=== PATIENT | female | born 1950 | race Caucasian/White ===

== ENCOUNTER 2021-01-09 17:38 | Emergency (ER) | payer MEDICAID ==
[~2021-01-09] VITALS: Ht 160 cm; Wt 83.5 kg
[2021-01-09 17:54] VITALS: BP 159/67
--- NOTE | 2021-01-09 18:28 | NUR ---
70 Y/O F, PATIENT PRESENTS TO ED WITH BILATERAL LEG SWELLING AND PAIN AND PAINFUL URINATION FOR 1 WEEK. PT STATES SHE HAS BEEN HAVING BURNING SENSATION AND PAIN WITH URINATION, ODOR WITH URINE. DENIES N/V/D; SKIN IS PINK/WARM/DRY, BILATERAL LEG EDEMA, NO REDNESS OR HEAT; AAOX4 IS ABLE TO SLOWLY AMBULATE; LUNGS CLEAR BL; HR EVEN AND REGULAR, NON PITTING EDEMA; PT DENIES ANY FEVER, CP, SOB, OR COUGH AT THIS TIME; PATIENT STATES PAIN OF 9/10 AT THIS TIME; VSS; PATIENT POSITIONED FOR COMFORT; HOB ELEVATED; BEDRAILS UP X2; BED DOWN. ER MD MADE AWARE OF PT STATUS. PMH: DM, HTN, HIGH CHOLESTEROL ALLERGY: PENICILLIN (HIVES)
--- NOTE | 2021-01-09 18:50 | NUR ---
XRAY AT BEDSIDE.
[2021-01-09 18:56] LABS: BASOPHILS % (AUTO) 0.3 % (0.0-2.0); EOSINOPHILS # (AUTO) 0.2 K/uL (0-0.4); EOSINOPHILS % (AUTO) 2.6 % (0.0-4.0); HEMATOCRIT 36.9 % (36-48); HEMOGLOBIN 12.5 g/dL (12.0-16.0); LYMPHOCYTES # (AUTO) 2.1 K/uL (2.5-16.5); LYMPHOCYTES % (AUTO) 28.5 % (20.5-51.1); MEAN CORPUSCULAR HEMOGLOBIN 29 pg (27-31); MEAN CORPUSCULAR HGB CONC 34 g/dL (33-37); MEAN CORPUSCULAR VOLUME 85.7 fL (80-94); MONOCYTES # (AUTO) 0.5 K/uL (0.8-1.0); NEUTROPHILS # (AUTO) 4.5 K/uL (1.8-7.7); NEUTROPHILS % (AUTO) 61.6 % (42.2-75.2); PLATELET COUNT (AUTO) 178 K/uL (140-450); RED CELL DISTRIBUTION WIDTH 12.8 % (11.6-13.7); WHITE BLOOD COUNT (AUTO) 7.3 K/uL (4.8-10.8)
--- NOTE | 2021-01-09 18:57 | NUR ---
US AND LAB AT BEDSIDE.
[2021-01-09 19:05] LABS: ALBUMIN 3.3 g/dL (3.4-5.0); ANION GAP 11.2 (8-16); CARBON DIOXIDE 28.5 mmol/L (21-32); CREATININE 0.8 mg/dL (0.6-1.3); POTASSIUM 3.7 mmol/L (3.5-5.1); TOTAL BILIRUBIN 0.4 mg/dL (0.0-1.0)
[2021-01-09 19:10] LABS: APPEARANCE,URINE CLEAR (CLEAR); BILIRUBIN,URINE NEGATIVE (NEGATIVE); BLOOD, URINE NEGATIVE (NEGATIVE); COLOR,URINE YELLOW (YELLOW); LEUKOCYTE ESTERASE ,URINE NEGATIVE (NEGATIVE); NITRITE, URINE NEGATIVE (NEGATIVE); UGLUCOSE 3+ (NEGATIVE)
--- NOTE | 2021-01-09 19:13 | NUR ---
Pt report given to TINY CANNON AND JAMES CANNON. Transfer of care at this time.
--- NOTE | 2021-01-09 19:40 | NUR ---
PT. LAYING IN BED COMFORTABLY, VOICES NO COMPLAINTS. AWAITING DISPOSITION.
[2021-01-09] MEDS ORDERED: COMP1EAC MC (20:12)
[2021-01-09 20:16] VITALS: BP 151/67
--- NOTE | 2021-01-09 20:16 | NUR ---
Patient discharged with v/s stable. Written and verbal after care instructions given and explained. Patient alert, oriented and verbalized understanding of instructions. Ambulatory with to car. All questions addressed prior to discharge. ID band removed. Patient advised to follow up with PMD. Rx of COMPRESSION SOCKS given. Patient educated on indication of medication including possible reaction and side effects. Opportunity to ask questions provided and answered.
== END 2021-01-09 20:16 | disposition home or self-care (01) ==
LOC: MED 17:38
DX: R60.0 Localized edema (principal); R30.0 Dysuria; E11.9 Type 2 diabetes mellitus without complications; I11.9 Hypertensive heart disease without heart failure; E78.00 Pure hypercholesterolemia, unspecified; Z88.0 Allergy status to penicillin
CPT/HCPCS: 36415; 71045; 80053; 81002; 81003; 85025; 93970; 99285

== ENCOUNTER 2021-12-18 21:19 | Emergency (ER) | payer MEDICAID ==
[~2021-12-18] VITALS: Ht 160 cm; Wt 83.0 kg
[~2021-12-18 21:19] MED LIST: COMP1EAC MC
[2021-12-18 22:27] VITALS: BP 154/74
--- NOTE | 2021-12-18 22:47 | NUR ---
ER MD AT BEDSIDE EXAMINING PT
[2021-12-18] MEDS ORDERED: NACL 0.9% 1,000 ML IV ONE (22:55)
[2021-12-18] MEDS ORDERED: ONDANSETRON 4 MG/2 ML VIAL IVP ONE (22:55)
[2021-12-18] MEDS ORDERED: KETOROLAC 30 MG/ML VIAL IVP ONE (22:55)
[2021-12-18] MEDS ORDERED: BENZONATATE 100 MG CAPLF PO PRN (22:55)
[2021-12-18 23:07] LABS: BASOPHILS % (AUTO) 0.4 % (0.0-2.0); EOSINOPHILS # (AUTO) 0.2 K/uL (0-0.4); EOSINOPHILS % (AUTO) 3.2 % (0.0-4.0); HEMATOCRIT 38.7 % (36-48); HEMOGLOBIN 13.1 g/dL (12.0-16.0); LYMPHOCYTES # (AUTO) 1.2 K/uL (2.5-16.5); LYMPHOCYTES % (AUTO) 17.9 % (20.5-51.1); MEAN CORPUSCULAR HEMOGLOBIN 29 pg (27-31); MEAN CORPUSCULAR HGB CONC 34 g/dL (33-37); MEAN CORPUSCULAR VOLUME 85.3 fL (80-94); MONOCYTES # (AUTO) 0.7 K/uL (0.8-1.0); MONOCYTES % (AUTO) 9.6 % (1.7-9.3); NEUTROPHILS # (AUTO) 4.8 K/uL (1.8-7.7); NEUTROPHILS % (AUTO) 68.9 % (42.2-75.2); PLATELET COUNT (AUTO) 179 K/uL (140-450); RED BLOOD CELL COUNT(AUTO) 4.54 MIL/uL (4.20-5.40); RED CELL DISTRIBUTION WIDTH 12.9 % (11.6-13.7); WHITE BLOOD COUNT (AUTO) 6.9 K/uL (4.8-10.8)
[2021-12-18 23:42] LABS: ALBUMIN 3.8 g/dL (3.4-5.0); ANION GAP 10.3 (8-16); ASPARTATE AMINOTRANSFERASE 26 U/L (15-37); CARBON DIOXIDE 30.7 mmol/L (21-32); CHLORIDE 103 mmol/L (98-107); CREATININE 0.7 mg/dL (0.6-1.3); GFR ARICAN-AMERICAN 107 mL/min (>90); GLUCOSE 198 mg/dL (74-106); SODIUM SERUM 140 mmol/L (136-145); TOTAL BILIRUBIN 0.4 mg/dL (0.0-1.0); UREA NITROGEN, BLOOD 12 mg/dL (7-18)
--- NOTE | 2021-12-19 00:17 | NUR ---
covid/pilar and flu swabs collected and walked to lab
[2021-12-19] MEDS ORDERED: AZIT250T4 PO (00:24)
[2021-12-19] MEDS ORDERED: PROM118S5 PO (00:24)
[2021-12-19] MEDS ORDERED: BENZ200C4 PO (00:24)
[2021-12-19] MEDS ORDERED: ALBU0.0912 IH (00:24)
--- NOTE | 2021-12-19 00:50 | NUR ---
71 YO M BIBS W C/O OF SOB AND COUGH X 3 DAYS, VOMITING X 1 DAY, CHEST PAIN WHEN COUGHING, CONGESTION, NECK PAIN, DENIES FEVER/N/V/D. A/OX4, GCS-15;AMBULATORY; UNLABORED BREATHING; SKIN IS PINK/DRY/WARM. PMH: DM. HTN, HIGH CHOL ALLERGY: PCN MEDS: LOSARTIN, METFORMIN, INSULIN
[2021-12-19 01:23] VITALS: BP 137/56
--- NOTE | 2021-12-19 01:24 | NUR ---
Patient discharged with v/s stable. Written and verbal after care instructions given and explained. Patient alert, oriented and verbalized understanding of instructions. Ambulatory with steady gait. All questions addressed prior to discharge. ID band removed. Patient advised to follow up with PMD. Rx of PROVENTIL HFA MDI, ZITHROMAX Z PACK, BENZONATATE, AND PROMETHAZINE-DM SYRUP given. Patient educated on indication of medication including possible reaction and side effects. Opportunity to ask questions provided and answered. A/OX4, VSS, UNLABORED BREATHING, AMBULATORY, AND CALM DEMEANOR.
== END 2021-12-19 01:23 | disposition home or self-care (01) ==
LOC: MED 21:19
DX: J40 Bronchitis, not specified as acute or chronic (principal); E11.9 Type 2 diabetes mellitus without complications; I10 Essential (primary) hypertension; E78.00 Pure hypercholesterolemia, unspecified; Z88.0 Allergy status to penicillin; Z20.822 Contact with and (suspected) exposure to COVID-19
CPT/HCPCS: 36415; 71045; 80053; 84484; 85025; 87426; 87804; 93005; 96361; 96374; 96375; 99285; J1885; J2405; J7030; Q0092